=== PATIENT | female | born 1950 | race Caucasian/White ===

== ENCOUNTER → 2021-04-01 | Outpatient (CLI) | payer MEDICARE ==
--- NOTE | 2021-04-03 10:35 | RAD ---
MR#: [id number] Date of Study: 04/01/2021 Ordering Physician: MITCHELL MCCLOUD, Referring Physician: MITCHELL MCCLOUD, Tech: Sage Gomez MBA, RDMS, RVT, RDCS, RTR APPROVED REPORT Bilateral Lower Extremity Venous Study for DVT Patient Location: OUT-PATIENT Indications Lower Extremity Edema: Bilateral Vein Imaging (Right) CFV (R): Compressible SFJ (R): Compressible FEM (R): Compressible POP (R): Compressible DFV (R): Compressible PTV (R): Spontaneous GSV (R): Spontaneous Peroneals (R): Spontaneous Vein Imaging (Left) CFV (L): Compressible SFJ (L): Compressible FEM (L): Compressible POP (L): Compressible DFV (L): Compressible PTV (L): Spontaneous GSV (L): Spontaneous Peroneals (L): Spontaneous Doppler Evaluation (Right) CFV (R): Spontaneous POP (R):Spontaneous Doppler Evaluation (Left) CFV (L):Spontaneous POP (L):Spontaneous Findings Grayscale images of bilateral lower extremity deep veins did not show any obvious thrombus. They are fully compressible. Spectral waveforms and color Doppler flow within normal limits as well. There is spontaneous flow noted below the knee and the vessels are compressible as well. No evidence of de ep venous thrombosis. Critical Notification Critical Value: No <Conclusion> Bilateral lower extremity venous duplex scan did not show any evidence of deep venous thrombosis. Signed by : Manuel Nicolas, Electronically Approved : 04/03/2021 10:34:44
--- NOTE | 2021-04-03 16:35 | RAD ---
MR#: [id number] Date of Study: 04/01/2021 Ordering Physician: MITCHELL MCCLOUD, Referring Physician: MITCHELL MCCLOUD, Tech: Sage Gomez MBA, RDMS, RVT, RDCS, RTR APPROVED REPORT Patient Location : OUT-PATIENT Indications Lower Extremity Edema : Bilateral Findings Grayscale images of bilateral saphenofemoral junctions did not show any thrombus. Patient was noted to have enlarged lymph nodes both groins, the largest node in the right groin measuring 3.2 cm and th e largest one in the left groin measuring 4.0 cm. Spectral waveform analysis and color duplex imaging was performed on superficial veins both lower ext remities. The right greater saphenous vein measured 4.3 mm and did not show any reflux. The left gr eater saphenous vein measured 4.7 mm and did not show any reflux. The lesser saphenous veins bilater ally did not show any reflux. Critical Notification Critical Value: No <Conclusion> No significant reflux noted in bilateral greater and lesser saphenous veins. Incidental finding of enlarged lymph nodes in both groins as stated above. Recommend follow-up with PCP for further evaluation. Signed by : Manuel Nicolas, Electronically Approved : 04/03/2021 16:34:39
== END ==
LOC: US 11:45
PROVIDERS: ATTEND Internal Medicine Cardiovascular Disease
DX: M79.89 Other specified soft tissue disorders (principal); R59.9 Enlarged lymph nodes, unspecified
CPT/HCPCS: 93970

== ENCOUNTER → 2021-04-11 | Outpatient (CLI) | payer MEDICARE ==
--- NOTE | 2021-04-14 15:48 | RAD ---
MR#: [id number] Date of Study: 04/11/2021 Ordering Physician: MITCHELL MCCLOUD, Referring Physician: MITCHELL MCCLOUD, Tech: Sage Gomez, FRANCISCA, RDMS, RVT, RDCS, RTR APPROVED REPORT Patient Location: OUT-PATIENT Indications Claudication:Bilaterally VELOCITY AND DOPPLER WAVEFORM ANALYSIS RIGHT cm/secWaveformSeverity LEFT cm/secWaveform Severity dCFA 173.0TriphasicdCFA 132.0Triphasic Prof Fem Art. 73.0BiphasicProf Fem Art. 70.0Biphasic Fem Art Prox. 162.0TriphasicFem Art Prox. 166.0Triphasic Fem Art Mid. 145.0TriphasicFem Art Mid. 138.0Triphasic Fem Art Dist. 159.0TriphasicFem Art Dist. 154.0Triphasic Pop Art(Fossa) 116.0TriphasicPop Art(AK) 110.0Triphasic CHANGE MANAGEMENT EXPERT Prox. 127.0TriphasicPTA Prox. 123.0Triphasic CHANGE MANAGEMENT EXPERT Dist. 142.0TriphasicPTA Dist. 114.0Triphasic Per Art Mid. 97.0MonophasicPer Art Mid. 136.0Monophasic MEME Prox. 95.0TriphasicATA Prox. 91.0Triphasic DPA 98BiphasicDPA 60Biphasic Findings Grayscale images of bilateral lower extremity arteries showed mild diffuse atherosclerosis. Spectral waveform analysis and color duplex imaging showed triphasic waveforms without any significan t stenosis involving right common femoral, superficial femoral and popliteal arteries. There is thre e-vessel runoff below the knee bilaterally. The peroneal arteries bilaterally showed monophasic wave forms suggesting at least moderate diffuse disease. Critical Notification Critical Value: No <Conclusion> No significant bilateral lower extremity peripheral artery stenosis. Signed by : Manuel Nicolas, Electronically Approved : 04/14/2021 15:48:13
== END ==
LOC: US 13:47
PROVIDERS: ATTEND Internal Medicine Cardiovascular Disease
DX: I70.203 Unspecified atherosclerosis of native arteries of extremities, bilateral legs (principal); R59.9 Enlarged lymph nodes, unspecified
CPT/HCPCS: 93925